=== PATIENT | female | born 1990 | race Caucasian/White ===

== ENCOUNTER → 2017-11-06 | Outpatient (CLI) | payer OTHER ==
[~2017-11-06] MED LIST: ALBU1AER9 INH; BIOT1CAP4 PO; CETI10TA10 PO; DOXYCYCLINE PO; IBUP-1277 PO; MONT1TAB3 PO; OMEP20TA PO
== END | disposition home or self-care (01) ==
LOC: C.PAPS 12:06
PROVIDERS: ATTEND Physician Assistant
DX: Z01.419 Encounter for gynecological examination (general) (routine) without abnormal findings (principal)

== ENCOUNTER → 2017-11-06 | Outpatient (CLI) | payer OTHER | END | disposition home or self-care (01) | LOC: C.LABSPEC 11:51 | PROVIDERS: ATTEND Physician Assistant | DX: N89.8 Other specified noninflammatory disorders of vagina (principal) ==

== ENCOUNTER → 2018-05-16 | Outpatient (CLI) | payer BC | END | disposition home or self-care (01) | LOC: C.LABSPEC 11:34 | PROVIDERS: ATTEND Obstetrics & Gynecology | DX: Z34.01 Encounter for supervision of normal first pregnancy, first trimester (principal) ==

== ENCOUNTER 2019-01-02 17:54 | Inpatient (IN) ==
[2019-01-02] MEDS ORDERED: LACTATED RINGER'S 1,000 ML IV SCH (18:00)
[2019-01-02] MEDS ORDERED: OXYTOCIN 30 UNITS/500 ML BAG IV PRN (18:00)
[2019-01-02] MEDS ORDERED: ONDANSETRON INJ 2 MG/ML 2 ML VIAL IV PRN ×2 (18:02→20:01)
--- NOTE | 2019-01-02 18:09 | History & Physical Report ---
Date of Service January 02, 2019 Assessment & Plan (1) 40 weeks gestation of : Spontaneous labor. Admit to L&D, labs/IV/EFM. OK for epidural when she desires. Anticipate . History of Present Illness Chief Complaint: Contractions Primary Care Provider: Michelle Abad DO 28-year-old at 40 weeks presents to labor and delivery in spontaneous labor. She began having contractions at approximately 12:30 AM, these have increased in frequency and intensity all day. No gush of fluid. No vaginal bleeding. Positive movement. is complicated with depression and anxiety, irritable bowel syndrome, acid reflux disease. Patient takes Lexapro 10 mg daily, managed by Dr. Abad. Allergies Allergy/AdvReac Type Severity Reaction Status Date / Time No Known Allergies Allergy Verified 08/13/15 11:24 Home Medications Home Medications Medication Instructions Recorded Confirmed Type ALBUTEROL SULFATE (PROAIR HFA) 1 - 2 puff INHALATION Q4-6H #0 08/12/15 History BIOTIN 2,500 mcg PO QPM #0 08/12/15 History CETIRIZINE HCL (ZYRTEC) 10 mg PO HS #0 tab 08/12/15 History DOXYCYCLINE 1 tab PO QAM #0 08/12/15 History IBUPROFEN (ADVIL) 600 mg PO PRN #0 tab 08/12/15 History MONTELUKAST SODIUM (SINGULAIR) 10 mg PO HS #0 tab 08/12/15 History OMEPRAZOLE 1 tab PO QAM 90 Days #90 tab 08/12/15 History Review of Systems All systems reviewed & are unremarkable except as noted in HPI & below Physical Exam Vital Signs (Past 24 Hours): Gen: AAOx3, very uncomfortable and actively vomiting CV: RRR L: CTAB Abd: soft, gravid, NTTP. Ext: no edema SVE: 4/100/-1, bulging membranes FHT Cat 1, [place] Q 2-4 min
[2019-01-02 18:29] LABS: Hematocrit (blood only) 38.1 % (37-47); Mean Corpuscular Volume 91.6 fL (80-100); Mean Platelet Volume 9.7 fL (7.4-10.4); Platelet Count 161 K/uL (130-400); RDW Coefficient of Variation 13.2 % (11.5-14.5); Red Blood Count 4.16 M/uL (4.2-5.4); White Blood Count 12.28 K/uL (4.8-10.8)
[2019-01-02 18:32] LABS: Mean Corpuscular Hgb Conc 34.1 g/dL (32-36)
[2019-01-02] MEDS: LACTATED RINGER'S 1,000 ML IV PRN ×2 (18:38→19:42)
[2019-01-02] MEDS ORDERED: BUPIVACAINE 0.25% 30 ML VIAL ONE (19:06)
[2019-01-02] MEDS ORDERED: fentaNYL citrate 100 MCG/2 ML VIAL ONE (19:06)
[2019-01-02] MEDS ORDERED: ePHEDrine sulfate 50 MG/ML AMP ONE (19:06)
[2019-01-02] MEDS ORDERED: fentaNYL 2MCG/ML ROPIV 1.25MG/ML 100 ML BAG EPI ONE (19:07)
--- NOTE | 2019-01-02 19:35 | Anesthesiology Consultation ---
Date of Service January 02, 2019 History Height/Weight Height: 5 ft 6 in Weight: 76.657 kg Allergies Allergy/AdvReac Type Severity Reaction Status Date / Time No Known Allergies Allergy Verified 08/13/15 11:24 Medications Active Medications Generic Name Dose Route Start Last Admin Trade Name Freq PRN Reason Stop Dose Admin Lactated Ringer's 1,000 mls @ 999 mls/hr 01/02/19 18:00 01/02/19 18:38 Lr IV 02/01/19 17:59 999 mls/hr .Q1H1M PRN Administration (Pre-Anesthesia) Ondansetron HCl 4 mg 01/02/19 18:02 01/02/19 18:17 Zofran IV 02/01/19 18:01 4 mg Q4H PRN Administration Nausea Social History Smoking Status: Never smoker Do You Dip or Chew Tobacco: No Hx Alcohol Use: No Hx Substance Use: No Physical Exam Vital Signs Last Vital Signs Temp 36.7 C 01/02/19 18:05 Pulse 83 01/02/19 19:31 Resp 18 01/02/19 18:05 BP 129/71 01/02/19 19:31 Pulse Ox 94 01/02/19 19:31 Testing Laboratory Results 01/02/19 18:16
--- NOTE | 2019-01-02 19:37 | Anesthesiology Consultation ---
Date of Service January 02, 2019 Assessment & Plan Chart Review Chart Review: Acceptable Risk for Labor Epidural Consults Requested none ASA ASA2 Proposed Anesthesia Anesthesia Type: Labor Epidural Risk / Benefits Reviewed With: PT / POA / Parent / Guardian, Accepts Plan and Informed Consent Obtained NPO Date Last Intake of Fluids: 01/02/19 Time Last Intake of Fluids: 15:00 Date Last Intake of Solids: 01/02/19 Time Last Intake of Solids: 10:00 History Height/Weight Height: 5 ft 6 in Weight: 76.657 kg Allergies Allergy/AdvReac Type Severity Reaction Status Date / Time No Known Allergies Allergy Verified 08/13/15 11:24 Medications Active Medications Generic Name Dose Route Start Last Admin Trade Name Freq PRN Reason Stop Dose Admin Lactated Ringer's 1,000 mls @ 999 mls/hr 01/02/19 18:00 01/02/19 18:38 Lr IV 02/01/19 17:59 999 mls/hr .Q1H1M PRN Administration (Pre-Anesthesia) Ondansetron HCl 4 mg 01/02/19 18:02 01/02/19 18:17 Zofran IV 02/01/19 18:01 4 mg Q4H PRN Administration Nausea Past Medical History Medical History Anemia Asthma GERD (gastroesophageal reflux disease) Past Anesthesia History No Hx of Anesthesia Complications and No Family Hx of Anesthesia Complications History of PONV No Motion Sickness Screening History of Motion Sickness: No Social History Smoking Status: Never smoker Do You Dip or Chew Tobacco: No Hx Alcohol Use: No Hx Substance Use: No Exercise / Class Metabolic Activity II 4-5 Yardwork/Stairs/Walk up hill Physical Exam Vital Signs Last Vital Signs Temp 36.7 C 01/02/19 18:05 Pulse 83 01/02/19 19:31 Resp 18 01/02/19 18:05 BP 129/71 01/02/19 19:31 Pulse Ox 94 01/02/19 19:31 Constitutional not obese ENMT Mouth: no dentition abnormality Thyromental Distance: > or= 3.5 Finger Breadths Mallampati Class: II Neck normal visual inspection and trachea midline; neck extension not limited Respiratory normal respiratory effort Auscultation: lungs clear to auscultation bilaterally Cardiovascular Rate/Rhythm: regular rate and regular rhythm Heart Sounds: no murmur Musculoskeletal Spine: lumbar spine normal to inspection; normal cervical ROM Neurologic moves all extremities Motor/Sensory: no sensory deficit Psychiatric Orientation: alert and oriented x 3 Testing Laboratory Results 01/02/19 18:16
[2019-01-02] MEDS ORDERED: NALOXONE HCL 0.4 MG/1 ML VIAL/CARP IV PRN (20:01)
[2019-01-02] MEDS ORDERED: DiphenhydrAMINE HCL 50 MG/ML VIAL IV PRN (20:01)
[2019-01-02] MEDS ORDERED: LACTATED RINGER'S 1,000 ML IV PRN (20:01)
[2019-01-02] MEDS ORDERED: ePHEDrine sulfate 50 MG/ML AMP IV PRN (20:01)
[2019-01-02] MEDS ORDERED: PROMETHAZINE HCL 25 MG in SODIUM CHLORIDE 0.9% 50 ML IV PRN (20:01)
[2019-01-02] MEDS ORDERED: NALOXONE HCL 1 MG in SODIUM CHLORIDE 0.9% 1000ML 1,000 ML IV PRN (20:01)
[2019-01-02] MEDS ORDERED: fentaNYL 2MCG/ML ROPIV 1.25MG/ML 100 ML BAG EPI PRN (20:01)
[2019-01-02] MEDS ORDERED: NALBUPHINE HCL INJ 10 MG/ML AMP IV PRN (20:01)
--- NOTE | 2019-01-03 02:06 | Procedure Note ---
Vaginal Delivery Summary Date of Service January 03, 2019 Vaginal Delivery Summary Predelivery diagnoses: 28yo @ 40 1/, spontaneous labor, depression/anxiety, IBS Postdelivery diagnoses: same + first degree perineal laceration Procedure: spontaneous vaginal delivery Surgeon: Dr Wu EBL: 300ml Complications: none Findings: Viable male , apgars 8/9. Weight pending, please see nursery records. Description of delivery: The patient progressed to complete dilation with epidural anesthesia. She then began to push. She spontaneously vaginally delivered a viable male from the cephalic presentation. Head delivered in the right occiput anterior position, followed by anterior shoulder, then posterior shoulder, followed by body. No nuchal cord was noted. The placenta was delivered spontaneously intact with a three-vessel cord. Pitocin was given, the uterus became firm with aggressive uterine massage. The uterus and vagina were swept of all clots and debris. The cervix vagina and perineum were inspected, and a first-degree perineal laceration was noted. This was repaired in standard fashion with 3-0 Vicryl. Excellent hemostasis was observed. At the conclusion of the delivery, sponge, instrument, needle counts were correct x2. Mother and baby recovered in the room in stable and good condition.
[2019-01-03] MEDS ORDERED: OXYTOCIN 30 UNITS/500 ML BAG IV PRN (02:32)
[2019-01-03] MEDS ORDERED: ACETAMINOPHEN 325 MG TAB PO PRN (02:32)
[2019-01-03] MEDS ORDERED: SUPERCREAM 0.870% 15 GM JAR EXT PRN (02:32)
[2019-01-03] MEDS ORDERED: OXYCODONE/ACETAMINOPHEN 5mg/325mg TAB PO PRN (02:32)
[2019-01-03] MEDS ORDERED: ALBUTEROL HFA 8 GM INHALER INH PRN (02:32)
[2019-01-03] MEDS ORDERED: BISACODYL 10 MG SUPP PR PRN (02:32)
[2019-01-03] MEDS ORDERED: DIPHTHERIA/TETANUS/PERTUSSIS 0.5 ML SYR/VIAL IM ONE (02:32)
[2019-01-03] MEDS ORDERED: HYDROCORTISONE ACETATE 25 MG SUPP PR PRN (02:32)
[2019-01-03] MEDS ORDERED: BENZOCAINE 20% AER SPR 82.5 GM CAN EXT PRN (02:32)
--- NOTE | 2019-01-03 02:49 | Anesthesia Procedure Note ---
Date of Service January 03, 2019 Anesthesia Post Epidural Note Vital Signs Vital Signs: Temp Pulse Resp BP Pulse Ox 37.0 C 85 18 107/59 L 94 01/03/19 01:04 01/03/19 02:41 01/03/19 01:04 01/03/19 02:41 01/03/19 01:42 Pain Intensity Bilateral Abdomen: Pain Intensity: 0 Notes Mental Status: alert / awake / arousable Nausea / Vomiting: adequately controlled Pain: adequately controlled Airway Patency, RR, SpO2: stable & adequate BP & HR: stable & adequate Hydration State: stable & adequate Neuraxial Anesthesia: was administered Anesthetic Complications: no major complications apparent Epidural: Removed without complications and With tip intact
[2019-01-03] MEDS: IBUPROFEN 600 MG TAB PO PRN ×3 (04:34→19:00)
[2019-01-03] MEDS ORDERED: NON-FORMULARY MEDICATION (Biotin 1 MG) PO SCH (09:00)
[2019-01-03] MEDS ORDERED: IRON PO SCH (09:00)
[2019-01-03] MEDS ORDERED: MULTIVITAMIN PO SCH (09:00)
[2019-01-03] MEDS ORDERED: FOLIC ACID PO SCH (09:00)
[2019-01-03] MEDS: DOCUSATE SODIUM 100 MG CAP PO SCH ×2 (09:10→20:18)
[2019-01-03] MEDS: PANTOprazole 40 MG TAB PO SCH (09:10)
[2019-01-03] MEDS: PRENATAL VITAMIN 1 TAB PO SCH (09:10)
[2019-01-03] MEDS: CETIRIZINE HCL 10 MG TABLET PO SCH (09:10)
[2019-01-03] MEDS: ESCITALOPRAM OXALATE 10 MG TAB PO SCH (09:10)
[2019-01-04] MEDS: IBUPROFEN 600 MG TAB PO PRN ×2 (05:58→22:46)
[2019-01-04 06:14] LABS: Hemoglobin 11.6 g/dL (12.0-16.0)
--- NOTE | 2019-01-04 07:22 | Obstetrical Progress Note ---
Date of Service January 04, 2019 Assessment & Plan (1) 40 weeks gestation of : 28 y/o. , at 40 weeks - continue routine post care, encourage ambulation, encourage (2) Spontaneous vaginal delivery: Subjective Ambulation: ambulating normally Voiding: no voiding problems Passing Gas:: Yes Diet Tolerance:: regular diet Lochia:: Small Feeding Type:: breast feeding Mery states she is doing well today, no acute events overnight. She denies fever, chills, chest pains, shortness of breath, nausea, vomiting. Physical Exam Vital Signs (Past 24 Hours) Last Vital Signs Temp 36.9 C 01/03/19 23:50 Pulse 83 01/03/19 23:50 Resp 16 01/03/19 23:50 BP 99/62 L 01/03/19 23:50 Pulse Ox 96 01/03/19 23:50 Constitutional WD/WN, vitals as above cooperative and comfortable Eyes + anicteric sclerae and EOM intact bilaterally Neck normal visual inspection and trachea midline Respiratory normal respiratory effort, lungs clear to auscultation Cardiovascular Rate/Rhythm: regular rate and regular rhythm Heart Sounds: no murmur Gastrointestinal (Abdomen) uterine fundus is firm, non-tender, 2-cm inferior to umbilicus Musculoskeletal Head/Neck/Chest: normocephalic and head atraumatic Skin no rashes, warm and dry Neurologic moves all extremities and awake Psychiatric A+Ox3, euthymic affect Results & Data Laboratory Results Laboratory Results - last 24 hr 01/04/19 05:58 Hgb 11.6 L Hct 35.0 L Medications Administered Cetirizine HCl (Zyrtec) 10 mg PO DAILY LIANA Stop: 02/02/19 08:59 Last Admin: 01/03/19 09:10 Dose: 10 mg Documented by: [id number] Docusate Sodium (Colace) 100 mg PO BID LIANA Stop: 02/02/19 08:59 Last Admin: 01/03/19 20:18 Dose: 100 mg Documented by: [id number] Admin: 01/03/19 09:10 Dose: 100 mg Documented by: [id number] Escitalopram Oxalate (Lexapro) 10 mg PO DAILY LIANA Stop: 02/02/19 08:59 Last Admin: 01/03/19 09:10 Dose: 10 mg Documented by: [id number] Ibuprofen (Motrin) 600 mg PO Q4H PRN PRN Reason: Pain/TIMMONS/Cramping/Fever Stop: 02/02/19 02:31 Last Admin: 01/04/19 05:58 Dose: 600 mg Documented by: [id number] Admin: 01/03/19 19:00 Dose: 600 mg Documented by: [id number] Admin: 01/03/19 14:29 Dose: 600 mg Documented by: [id number] Admin: 01/03/19 04:34 Dose: 600 mg Documented by: [id number] Pantoprazole Sodium (Protonix) 40 mg PO DAILY [facility] Stop: 02/02/19 08:59 Last Admin: 01/03/19 09:10 Dose: 40 mg Documented by: [id number] Prenat Multivit/Parakeet Raiser/Iron/Folic Ac ( Vitamin) 1 tab PO QAM [facility] Stop: 02/02/19 08:59 Last Admin: 01/03/19 09:10 Dose: 1 tab Documented by: [id number]
[2019-01-04] MEDS: ESCITALOPRAM OXALATE 10 MG TAB PO SCH (09:32)
[2019-01-04] MEDS: DOCUSATE SODIUM 100 MG CAP PO SCH ×2 (09:32→20:39)
[2019-01-04] MEDS: PANTOprazole 40 MG TAB PO SCH (09:32)
[2019-01-04] MEDS: CETIRIZINE HCL 10 MG TABLET PO SCH (09:32)
[2019-01-04] MEDS: PRENATAL VITAMIN 1 TAB PO SCH (09:32)
[2019-01-04] MEDS ORDERED: BISACODYL 5 MG TABEC PO SCH (20:00)
[2019-01-05] MEDS: IBUPROFEN 600 MG TAB PO PRN (07:21)
--- NOTE | 2019-01-05 08:09 | Obstetrical Progress Note ---
Date of Service January 05, 2019 Assessment & Plan (1) 40 weeks gestation of : (2) Spontaneous vaginal delivery: doing well, ready for discharge home. f/u 6 wks pp check. instructions reviewed. breast feeding. Day #:: 2 Subjective Ambulation: ambulating normally Voiding: no voiding problems Diet Tolerance:: regular diet Lochia:: Small Feeding Type:: breast feeding doing well. ready for discharge. Physical Exam Vital Signs (Past 24 Hours) Last Vital Signs Temp 36.9 C 01/04/19 23:20 Pulse 71 01/04/19 23:20 Resp 20 01/04/19 23:20 BP 112/74 01/04/19 23:20 Pulse Ox 97 01/04/19 23:20 Constitutional WD/WN, vitals as above Respiratory normal respiratory effort, lungs clear to auscultation Cardiovascular Rate/Rhythm: regular rate and regular rhythm Gastrointestinal (Abdomen) Inspection/Auscultation: abdomen normal to inspection Percussion/Palpation: abdomen soft fundus firm 2 cm below umbilicus Musculoskeletal nt calves Psychiatric A+Ox3, euthymic affect
[2019-01-05] MEDS: ESCITALOPRAM OXALATE 10 MG TAB PO SCH (08:27)
[2019-01-05] MEDS: PRENATAL VITAMIN 1 TAB PO SCH (08:27)
[2019-01-05] MEDS: PANTOprazole 40 MG TAB PO SCH (08:27)
[2019-01-05] MEDS: DOCUSATE SODIUM 100 MG CAP PO SCH (08:28)
[2019-01-05] MEDS: CETIRIZINE HCL 10 MG TABLET PO SCH (08:28)
== END 2019-01-05 12:40 | disposition home or self-care (01) | DRG 807 ==
LOC: OPB 17:54 → 4S1 17:55 → 4S2 01-03 05:06
DX: O70.0 First degree perineal laceration during delivery; Z37.0 Single live birth; O99.62 Diseases of the digestive system complicating childbirth; Z3A.40 40 weeks gestation of pregnancy; K58.9 Irritable bowel syndrome, unspecified; F41.8 Other specified anxiety disorders; O99.344 Other mental disorders complicating childbirth